=== PATIENT | male | born 1970 | race American Indian/Alaskan Native ===

== ENCOUNTER 2018-10-28 10:56 | Inpatient (IN) ==
[2018-10-28] MEDS ORDERED: IOPAMIDOL 100 ML BOTTLE IV ONE (10:57)
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
[2018-10-28 12:39] LABS: Basophils # (Auto) 0 K/mcL (0.0-0.3); Basophils % (Auto) 0.4 % (0.0-2.0); Eosinophils # (Auto) 0.3 K/mcL (0.0-0.7); Eosinophils % (Auto) 3.6 % (0.0-7.0); Lymphocytes # (Auto) 2.1 K/mcL (1.5-4.8); Lymphocytes % (Auto) 24.3 % (15.5-49.0); Mean Cell Volume 82.7 fL (80.0-100.0); Mean Corpuscular HGB Conc 32.9 g/dL (31.0-36.0); Monocytes # (Auto) 0.8 K/mcL (0.1-0.9); Monocytes % (Auto) 9.7 % (1.0-12.0); Platelet Count 267 K/mcL (140-440); RBC 2.47 M/mcL (4.50-5.90); Red Cell Distribution Width 13.1 % (11.5-14.5)
[2018-10-28 12:57] LABS: ALT/SGPT < 5 U/l (0-40); Albumin 2.9 gm/dL (3.2-5.2); Albumin/Globulin Ratio 0.8 (1.0-2.3); Alkaline Phosphatase 75 U/L (39-117); Blood Urea Nitrogen 24 mg/dl (6-20)
--- NOTE | 2018-10-28 14:38 | Cat Scan Report ---
CLINICAL INFORMATION: Pain COMPARISON: None. TECHNIQUE: 90 cc of Isovue-300 were injected intravenously, and 25 seconds later, 0.625 mm helical slices were obtained from the lung bases to the apices. Following reconstruction, 2.5 mm sagittal, coronal and axial reformations were processed and reviewed at lung, mediastinal and bone windows. 7 mm axial MIPS were also obtained to optimize pulmonary nodule detection. The exam was performed using radiation dose optimization techniques including, but not limited to, automated exposure control, adjustment of the mA and/or kV according to patient size and use of iterative reconstruction technique. FINDINGS: Pulmonary parenchymal windows show minimal scattered scarring and/or atelectasis in both peripheral mid and lower lungs. No jeronimo infiltrates or effusions. Mediastinal windows show a large pericardial effusion slightly higher attenuation than simple fluid - 10 Hounsfield units. The heart is normal size, however. Thoracic aorta and pulmonary arteries are well-opacified and normal in contour and caliber. There are no abnormally enlarged lymph nodes in the mediastinal hilar or axillary region. Esophagus is grossly normal. Thyroid is unremarkable. Bones and soft tissues of the chest wall are normal. IMPRESSION: 1. Large pericardial effusion increasing considerably since a 04/22/[address] 2. No other chest abnormalities. 3. 3.2 cm benign adenoma in the right adrenal gland - stable since [address] Interpreted and Authenticated by: Joaquín Hernandez 10/28/18
--- NOTE | 2018-10-28 15:30 | Cat Scan Report ---
CLINICAL INFORMATION: Right-sided neck swelling COMPARISON: None. TECHNIQUE: 80 cc of Isovue-300 were injected intravenously and 25 seconds later, 2.5 mm helical slices were obtained from the inferior orbit through the supraclavicular region. Following reconstruction, 2.5 mm sagittal and coronal reformations were processed. The exam was reviewed at bone and soft tissue windows . The exam was performed using radiation dose optimization techniques including, but not limited to, automated exposure control, adjustment of the mA and/or kV according to patient size and use of iterative reconstruction technique. FINDINGS: Right IJ Port-A-Cath in satisfactory positioned within the right internal jugular vein: The tip in the SVC right atrial junction. There is no contrast in the right internal jugular vein which may be thrombosed. Moderate edema seen in perijugular soft tissues with extension medially to the prevertebral region. The remainder of the jugular venous and carotid system are unremarkable. There are no abnormally enlarged cervical lymph nodes. The epiglottis, aryepiglottic folds, true and false vocal cords and tongue base are all normal. Thyroid is unremarkable. The submandibular parotid glands are symmetric IMPRESSION: Right-sided Port-A-Cath in satisfactory position. No contrast is seen within the right internal jugular vein which may be thrombosed: suggest ultrasound to be certain. Moderate edema is noted in the perijugular soft tissues and right supraclavicular region with extension medially to involve the prevertebral soft tissues. Interpreted and Authenticated by: Joaquín Hernandez 10/28/18
[2018-10-28] MEDS: HYDROmorphone 2 MG/ML VIAL IV PRN ×2 (15:39→19:00)
--- NOTE | 2018-10-28 16:18 | Ultrasound Report ---
CLINICAL INFORMATION: right sided neck pain COMPARISON: None. FINDINGS: The mid and inferior right internal jugular vein is thrombosed. The right subclavian vein is patent. IMPRESSION: Complete thrombosis of the mid/inferior right internal jugular vein. Interpreted and Authenticated by: Joaquín Hernandez 10/28/18
[2018-10-28] MEDS ORDERED: HEPARIN 5,000 UNIT/ML VIAL IV ONE (16:20)
[2018-10-28] MEDS ORDERED: HEPARIN/D5W 25,000 UNIT in PREMIX 1 BAG IV SCH (16:30)
[2018-10-28] MEDS ORDERED: HEPARIN/D5W 500 ML IV ONE (16:31)
--- NOTE | 2018-10-28 17:43 | Internal Med History&Physical ---
Medical - H&P: HPI Patient information: Note initiated : 10/28/18 at 5:41 pm Service Date, if different from initiated Date: [] Patient: Leslie Lawson 48 y/o M admitted on for Port problems. Chief Complaint: [] History of present illness: Mr. Lawson is a 48 year old M 48-year-old male who presents to the ED with neck pain right side. Patient had a HD catheter placed by Dr. Delarosa the end of September. After the procedure he had neck pain felt is related to the procedure. About a week later he started noticing swelling of that side of the neck. He also gradually developed headache. Symptoms seem to continue to worsen. He went back to [facility] on the and was seen in the ED and received a chest x-ray. Was found to have a UTI and was given a shot of medication at that time. And blood cul tures were taken. He also reported fevers and chills that night. He was sent home after the workup. Was given Rocephin at [facility] He does report a history of shortness of breath which is improved significantly since undergoing dialysis. His complications of diabetes include including retinopathy neuropathy and nephropathy. Urinates a little throughout the day. He presented to [facility] with continued neck pain. Pain is sharp and throbbing and keeps him from rotating to the right because of the pain. Catheter is functioning and he last received dialysis yesterday. 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 Right subclavian vein is patent Case was discussed with Dr. Delarosa from the ED who recommended Eliquis and then discussed with Dr. Centeno recommend starting with IV heparin drip. He has no fever his heart rate is mildly tachycardic at 92. His laboratory work he has no leukocytosis but a hemoglobin of 6.7. Down from 7.5 [facility] 3 days earlier. The ED physician performed stool guaiac testing which was negative. Review of Systems: Pertinent positives as above. Denies chills/nausea/vomiting/chest or abdominal pain/cough/dyspnea/diarrhea. Remaining 10 point review of systems reviewed negative. Medical - H&P: PMH Medical history: Medical History Morbid obesity (Chronic) Multiple lipomas (Chronic) Hypertension, essential (Chronic) Appendicitis (Chronic) Joint pain (Chronic) Diabetes (Chronic) Daytime sleepiness (Chronic) Muscle pain (Chronic) Arthritis (Chronic) Thoracic back pain (Acute) Past Surgical History H/O foot surgery (Chronic) Hx of appendectomy (Chronic) S/P excision of lipoma (Chronic) Family history: Mother had a CVA Father diabetes Social history: Patient denies tobacco and alcohol lives with his family Medical - H&P: Meds Home Medications Medication Instructions Recorded Confirmed Type Amitriptyline HCl 25 - 75 mg PO HS 10/28/18 10/28/18 History Bumetanide 2 mg PO DAILY 10/28/18 10/28/18 History Carvedilol [Coreg] 12.5 mg PO BID 10/28/18 10/28/18 History Ergocalciferol (Vitamin D2) 2,500 unit PO DAILY 10/28/18 History [Ergocal] Insulin Lispro [HumaLOG] 0 unit SQ ACHS 10/28/18 10/28/18 History Irbesartan [Avapro] 300 mg PO DAILY 10/28/18 10/28/18 History Magnesium Oxide [Mag-Oxide 200 mg PO DAILY 10/28/18 History Magnesium] Rosuvastatin [Crestor] 10 mg PO HS 10/28/18 10/28/18 History Testosterone Cypionate 100 mg IM WEEKLY 10/28/18 10/28/18 History [Depo-Testosterone] amLODIPine BESYLATE [Amlodipine 5 mg PO DAILY 10/28/18 10/28/18 History Besylate] Allergies Allergy/AdvReac Type Severity Reaction Status Date / Time doxycycline Allergy Severe Unknown Verified 10/28/18 11:00 morphine Allergy Severe Unknown Verified 10/28/18 11:00 Penicillins Allergy Severe Unknown Verified 10/28/18 11:00 Medical - H&P: Exam - Constitutional Vitals: Temp Pulse Resp BP Pulse Ox 99.0 F 91 H 21 172/88 94 10/28/18 10:56 10/28/18 17:15 10/28/18 17:15 10/28/18 17:16 10/28/18 17:15 Exam: General: Alert, Awake, No acute Distress, obese Eyes/N/T: EOMI, PEERL, Head/Neck: Decreased range of motion right rotation secondary to pain, difficult to appreciate swelling in the right side given his girth from adipose tissue CV: Mildly tachycardic, No murmurs, normal s1/s2 Pulm: Clear b/l, no wheezing/rhonchi/rales Abd: soft, nontender, +BS x4 Ext: no clubbing/cyanosis/edema Neuro: Alert, no focal deficits, moves all extremities, CN 2-12 grossly intact, symmetrical strength b/l upper/lower, sensations intact b/l upper/lower but does have decreased sensation in the leg from neuropathy Skin: warm/dry Medical - H&P: Reslt - Labs CBC & Chem 7: 10/28/18 12:07 10/28/18 12:07 Labs: Short CBC 10/28/18 Range/Units 12:07 WBC 8.6 (4.5-11.0) K/mcL Hgb 6.7 L* (13.5-16.5) g/dL Hct 20.4 L* (41.0-55.0) % Plt Count 267 (140-440) K/mcL BMP 10/28/18 12:07 Sodium 137 Potassium 4.0 Chloride 97 Carbon Dioxide 30 BUN 24 H Creatinine 4.6 H Glucose 173 H Calcium 8.1 L Liver Function 10/28/18 Range/Units 12:07 Total Bilirubin 0.2 (0.0-1.0) mg/dL AST 10 (0-37) U/l ALT < 5 (0-40) U/l Alkaline Phosphatase 75 (39-117) U/L Albumin 2.9 L (3.2-5.2) gm/dL - Impressions Ultrasound with a right internal jugular vein thrombus CT soft tissue shows moderate edema in the perijugular soft tissues and right subclavian region CT chest shows per discussion with radiologist moderate effusion chronic in nature, no acute abnormalities Medical - H&P: A/P - Narrative A/P Narrative: A: *Right IJ Vein thrombosis s/p placement of right HD cath almost 4 weeks ago @[facility]: -causing swelling/discomfort of right side of neck but no airway compromise *?bacteremia: clarify as BC from [facility] show no growth *recent UTI: *ESRD (MWF): follows with Centeno *DM with retinopathy/neuropathy/nephropathy: *HTN: On amlodipine/carvedilol/Irbesartain *Anemia, acute on chronic: stool guaiac negative in the ED -No obvious source of bleeding, CT a/p no retroperitoneal bleeding noted * P: -heparin gtt -Abx until BC confirmed -Centeno following -echo to evaluate pericardial effusion -transfuse 1 PRBC, monitor H&H - -basal insulin and SSI - -ppx: on heparin gtt
--- NOTE | 2018-10-28 17:44 | Cat Scan Report ---
CLINICAL INFORMATION: Abdominal pain and occult bleeding COMPARISON: Abdomen and pelvic CT 04/22/2013 TECHNIQUE: 0.625 mm helical slices were obtained from the mid heart through the subtrochanteric regions. Following reconstruction, 2.5 mm sagittal, coronal and axial reformatted images were processed and reviewed at bone and soft tissue windows.The exam was performed using radiation dose optimization techniques including, but not limited to, automated exposure control, adjustment of the mA and/or kV according to patient size and use of iterative reconstruction technique. FINDINGS: Lung bases show no abnormality - no effusion. Moderate pericardial effusion is new from the previous study.The pericardial effusion is higher attenuation suggesting proteinaceous content such as hemorrhage or infection. Small bilateral pleural effusions have also developed. Image through the abdomen show the noncontrasted gallbladder and bile ducts, liver, both kidneys, adrenal glands, spleen, pancreas and aorta to be normal in size, configuration and attenuation without focal lesion. No free air, free fluid or adenopathy. The stomach, small and large bowel are normal. Appendectomy changes acknowledged. Pelvic images show prostate, seminal vesicles and urinary bladder are normal. Bone windows show no osseous abnormalities. IMPRESSION: No abnormality within the abdomen or pelvis Moderate/large pericardial effusion with high attenuation fluid suggesting hemorrhage or infection. Consider: Pericardiocentesis Small bilateral pleural effusions Interpreted and Authenticated by: Joaquín Hernandez 10/28/18
[2018-10-28] MEDS ORDERED: ACETAMINOPHEN 325 MG TABLET PO ONE (20:06)
[2018-10-28] MEDS ORDERED: HYDROmorphone 2 MG/ML VIAL IV PRN (20:31)
[2018-10-28] MEDS ORDERED: ceFAZolin 2 GM in DEXTROSE 5% IN WATER 50 ML IV SCH (20:31)
[2018-10-28] MEDS ORDERED: IPRATROPIUM/ALBUTEROL 3 ML AMPUL.NEB NEB PRN (20:31)
[2018-10-28] MEDS ORDERED: 0.9 % SODIUM CHLORIDE 250 ML IV SCH (20:31)
[2018-10-28] MEDS ORDERED: LEVOFLOXACIN 750 MG/150 ML BAG IV ONE ×2 (21:51→22:35)
[2018-10-28 21:56] LABS: Appearance,Urine CLEAR; Bacteria,Urine 0 /hpf (0); Bilirubin,Urine NEG (NEG); Color,Urine YELLOW; Glucose,Urine (UA) 150 mg/dL (NEG); Leukocyte Esterase,Urine NEG /uL (NEG); Mucus,Urine FEW /hpf (0); Protein,Urine >=500 mg/dL (NEG); Urine Blood 0.03 mg/dL (<0.03); Urine Hyaline Cast 10 /lpf (0-2); Urine RBC 5 /hpf (0-1); Urine Squamous Epithelial Cell < 1 /hpf (0-4); Urine WBC 6 /hpf (0-4); Urobilinogen,Urine NEG (NEG)
[2018-10-28] MEDS ORDERED: CARVEDILOL 6.25 MG TABLET ONE (22:35)
[2018-10-28] MEDS ORDERED: ceFAZolin 1 GM VIAL ONE (22:35)
[2018-10-28] MEDS: AMITRIPTYLINE 25 MG TABLET PO SCH (22:40)
[2018-10-28] MEDS: 0.9 % SODIUM CHLORIDE 10 ML SYRINGE IV SCH (22:41)
[2018-10-28] MEDS: CARVEDILOL 12.5 MG TABLET PO SCH (22:42)
[2018-10-28] MEDS: DOCUSATE SODIUM 100 MG CAPSULE PO SCH (22:43)
[2018-10-28] MEDS: HEPARIN/D5W 25,000 UNIT in PREMIX 1 BAG IV SCH (22:46)
[2018-10-29] MEDS: ACETAMINOPHEN 325 MG TABLET PO PRN ×2 (00:52→19:21)
[2018-10-29] MEDS ORDERED: VANCOMYCIN 1,000 MG in 0.9 % SODIUM CHLORIDE 250 ML IV ONE (01:02)
[2018-10-29] MEDS: 0.9 % SODIUM CHLORIDE 10 ML SYRINGE IV SCH ×3 (05:31→20:53)
[2018-10-29] MEDS ORDERED: ceFAZolin 1 GM VIAL IV SCH ×2 (06:00→07:23)
[2018-10-29 06:03] LABS: Basophils # (Auto) 0 K/mcL (0.0-0.3); Basophils % (Auto) 0.5 % (0.0-2.0); Eosinophils # (Auto) 0.4 K/mcL (0.0-0.7); Eosinophils % (Auto) 5.6 % (0.0-7.0); Granulocytes % (Auto) 62.3 % (38.0-78.0); Lymphocytes # (Auto) 1.8 K/mcL (1.5-4.8); Lymphocytes % (Auto) 23.1 % (15.5-49.0); Mean Corpuscular HGB Conc 33.6 g/dL (31.0-36.0); Monocytes # (Auto) 0.7 K/mcL (0.1-0.9); Monocytes % (Auto) 8.5 % (1.0-12.0); Platelet Count 261 K/mcL (140-440); RBC 2.59 M/mcL (4.50-5.90)
[2018-10-29 06:21] LABS: ALT/SGPT < 5 U/l (0-40); Albumin 2.6 gm/dL (3.2-5.2); Albumin/Globulin Ratio 0.7 (1.0-2.3); Alkaline Phosphatase 74 U/L (39-117); Bilirubin,Direct < 0.2 mg/dL (0.0-0.3); Blood Urea Nitrogen 28 mg/dl (6-20); Gamma Glutamyl Transpeptidase 16 U/L (8-61); Uric Acid 4.8 mg/dL (2.5-8.0)
[2018-10-29] MEDS ORDERED: VANCOMYCIN PER PHARMACY IV SCH (07:17)
--- NOTE | 2018-10-29 07:24 | Internal Med Progress Note ---
Medical - PN: Subj Patient information: Note initiated : 10/29/18 at 7:15 am Service Date, if different from initiated Date: [] Patient: Leslie Lawson 48 y/o M admitted on 10/28/18 for Port problems. Chief Complaint: [] Interval history: 48-year-old male who presents to the ED with neck pain right side. Patient had a HD catheter placed by Dr. Delarosa the end of September. After the procedure he had neck pain felt is related to the procedure. About a week later he started noticing swelling of that side of the neck. He also gradually developed headache. Symptoms seem to continue to worsen. He went back to [facility] on the and was seen in the ED and received a chest x-ray. Was found to have a UTI and was given a shot of medication at that time. And blood cultures were taken. He also reported fevers and chills that night. He was sent home after the workup. Was given Rocephin at [facility] He does report a history of shortness of breath which is improved significantly since undergoing dialysis. His complications of diabetes include including retinopathy neuropathy and nephropathy. Urinates a little throughout the day. He presented to [facility] with continued neck pain. Pain is sharp and throbbing and keeps him from rotating to the right because of the pain. Catheter is functioning and he last received dialysis yesterday. 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 Right subclavian vein is patent Case was discussed with Dr. Delarosa from the ED who recommended Eliquis and then dis cussed with Dr. Centeno requested admitting and starting on IV heparin drip. He has no fever his heart rate is mildly tachycardic at 92. His laboratory work he has no leukocytosis but a hemoglobin of 6.7. Down from 7.5 [facility] 3 days earlier. The ED physician performed stool guaiac testing which was negative. UPDATE: Concerning the pericardial effusion and the CT abdomen pelvis which visualized heart. Report revealing effusion concerning for hemorrhage or infection. And given unknown source of his anemia (at lowest level) even though he has ESRD, no other source of bleeding, thus the concern that he is bleeding into the pericardial cavity. Is not in cardiac tamponade. Patient will need to be transferred to appropriate higher care facility. FURTHER UPDATE: I discussed the case with the instructional systems specialist over [facility] regarding the CT reading involving the pericardial fluid. And after reviewing the history and labs of the patient with me he had no immediate concerns and does not suspected hemorrhagic fluid around the heart, and patient certainly is not in cardiac Tamponade at this time nor are there any signs concerning for trending towards. He recommended keeping here with close monitoring and if anything changed to call him back. 10/29 Patient supple. Did have a temperature of 100.7 overnight, temperature normal this morning. No overnight events. Patient feels much better. His pain and swelling on the right side of his neck is improving and his headache is much improved. No chest pain coughing or shortness of breath. Review of Systems: denies fever/chills/nausea/vomiting/chest or abdominal pain/cough/dyspnea/diarrhea. Otherwise see above. - Constitutional Vitals: Vital Signs Temp Pulse Resp BP Pulse Ox 98.8 F 79 15 148/89 100 10/29/18 04:01 10/29/18 06:02 10/29/18 05:11 10/29/18 06:01 10/29/18 06:02 Period Temp Pulse Resp BP Sys/Lee Pulse Ox Last 24 Hr 98.8 F-100.7 F 77-96 6-25 120-188/68-108 87-100 Intake and Output 10/28/18 10/29/18 10/29/18 21:59 05:59 13:59 Intake Total 501 994 Output Total 125 150 Balance 376 844 Weight 126.462 kg Intake & Output: Intake & Output 10/28/18 10/29/18 10/29/18 21:59 05:59 13:59 Intake Total 501 994 Output Total 125 150 Balance 376 844 Weight 126.462 kg Intake: IV 141 134 Heparin/D5w 25,000 Unit In 141 134 Premix 1 Bag @ 14 UNIT/KG/HR 35 .18 mls/hr IV .[id number] [facility] Rx#: [id number] Oral 360 540 Blood Product 320 Output: Void Amount 125 150 Other: Meal sandwich Percent of Meal Consumed 100% Feeding Ability Independent Urine Appearance Clear Clear Urine Color Bright Yellow Dark Yellow Urine Odor Normal Normal Stool Size Moderate Stool Color Brown Stool Consistency Soft Formed # Voids 1 # Bowel Movements 1 Exam: General: Alert, Awake, No acute Distress, obese Eyes/N/T: EOMI, Head/Neck: improved ROM, difficult to appreciate swelling in the right side given his girth from adipose tissue CV: RRR, No murmurs, Pulm: Clear b/l, no wheezing/rhonchi/rales Abd: soft, nontender, +BS x4 Ext: no clubbing/cyanosis/edema Neuro: Alert, no focal deficits, moves all extremities, Skin: warm/dry Medical - PN: Obj Da - Labs CBC & Chem 7: 10/29/18 05:00 10/29/18 05:00 Labs: Abnormal Lab Results 10/29/18 10/29/18 10/29/18 05:00 05:00 00:20 RBC 2.59 L Hgb 7.3 L Hct 21.7 L POC Hct PT INR APTT 67 H POC BUN BUN 28 H Creatinine 5.2 H* POC Creatinine Glucose 192 H POC Glucose Calcium 7.7 L POC WB Ioniz Calcium Lactate Dehydrogenase 262 H Albumin 2.6 L Albumin/Globulin Ratio 0.7 L Urine Protein Urine Glucose (UA) Urine Occult Blood Urine RBC Urine WBC Hyaline Casts 10/28/18 10/28/18 10/28/18 20:45 18:13 16:50 RBC Hgb Hct POC Hct PT 16.4 H 17.1 H INR 1.3 H 1.4 H APTT 144 H* POC BUN BUN Creatinine POC Creatinine Glucose POC Glucose Calcium POC WB Ioniz Calcium Lactate Dehydrogenase Albumin Albumin/Globulin Ratio Urine Protein >=500 A Urine Glucose (UA) 150 A Urine Occult Blood 0.03 A Urine RBC 5 H Urine WBC 6 H Hyaline Casts 10 H 10/28/18 10/28/18 12:07 12:07 RBC 2.47 L Hgb 6.7 L* Hct 20.4 L* POC Hct 19.0 L* PT INR APTT POC BUN 23 H BUN 24 H Creatinine 4.6 H POC Creatinine 5.1 H Glucose 173 H POC Glucose 174 H Calcium 8.1 L POC WB Ioniz Calcium 1.06 L Lactate Dehydrogenase Albumin 2.9 L Albumin/Globulin Ratio 0.8 L Urine Protein Urine Glucose (UA) Urine Occult Blood Urine RBC Urine WBC Hyaline Casts Meds: Medications Acetaminophen (Tylenol) 650 mg PO Q4-6HP PRN PRN Reason: PAIN/FEVER > 101 Last Admin: 10/29/18 00:52 Dose: 650 mg Documented by: Albuterol/Ipratropium (Duoneb) 3 ml NEB Q4HRT PRN PRN Reason: Bronchospasm Amitriptyline HCl (Elavil) 25 - 75 mg PO HS [facility] Last Admin: 10/28/18 22:40 Dose: 75 mg Documented by: Amlodipine Besylate (Norvasc) 5 mg PO DAILY [facility] Bumetanide (Bumex) 2 mg PO DAILY [facility]g) [facility] Last Admin: 10/28/18 22:42 Dose: Not Given Documented by: Cefazolin Sodium (Ancef) 1 gm IV Q8H [facility] Last Admin: 10/29/18 05:31 Dose: 1 gm Documented by: Diagnostic Test (Pha) (Accu-Chek) 1 each FS ACHS [facility]; Protocol Last Admin: 10/28/18 22:42 Dose: 1 each Documented by: Docusate Sodium (Colace) 100 mg PO BID [facility] Last Admin: 10/28/18 22:43 Dose: Not Given Documented by: Hydromorphone HCl (Dilaudid) 0.5 mg IV Q2HP PRN PRN Reason: PAIN LEVEL > 6 Last Admin: 10/29/18 01:35 Dose: 0.5 mg Documented by: Heparin Sodium/Dextrose 25,000 (unit/ Premix) 500 mls @ 35.18 mls/hr IV .[id number] [facility]; Protocol Last Titration: 10/29/18 02:34 Dose: 16 unit/kg/hr, 40.21 mls/hr Documented by: Sodium Chloride (Sodium Chloride 0.9%) 250 mls @ 20 mls/hr IV .[id number] [facility] Stop: 10/29/18 09:00 Last Admin: 10/29/18 01:08 Dose: 20 mls/hr Documented by: Irbesartan (Avapro) 300 mg PO DAILY [facility] Mupirocin (Bactroban Oint 2%) 1 dose NARES BID [facility] Sodium Chloride (Saline Flush) 10 ml IV Q8 [facility] Last Admin: 10/29/18 05:31 Dose: 10 ml Documented by: Medical - PN: A/P - Time Spent With Patient Total time spent is greater than 50% in coordination of care (as documented) at patient's floor/unit and/or counseling patient: - Narrative A/P Narrative: A: *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 *ESRD (MWF): follows with [facility] *DM with retinopathy/neuropathy/nephropathy: *HTN: On amlodipine/carvedilol/Irbesartain *Anemia, acute on chronic: stool guaiac negative in the ED -No obvious source of bleeding, CT a/p no retroperitoneal bleeding noted -s/p 1PRB (10/28) *Pericardial effusion, moderate: No findings concerning for cardiac tamponade. Small effusion noted on CT from 2012. -discussed with [facility] Telephone Ad Taker regarding CT report (Dr. Pompa), no concern for transferring patient at this time P: -heparin gtt -vanc/cefepime, pending BC -pending cx from HD cath -[facility] following, further recs pending -monitor H&H - -SSI -ppx: on heparin gtt Medical - PN: Qual - VTE Deep Vein Thrombosis/Pulmonary Embolism Present on Admission: No
[2018-10-29] MEDS: CARVEDILOL 12.5 MG TABLET PO SCH ×2 (07:42→17:05)
[2018-10-29] MEDS ORDERED: CARVEDILOL 12.5 MG TABLET PO SCH (08:00)
[2018-10-29] MEDS: HEPARIN/D5W 25,000 UNIT in PREMIX 1 BAG IV SCH (12:31)
[2018-10-29] MEDS: MUPIROCIN OINT 2% 22GM NARES SCH (15:41)
[2018-10-29] MEDS: amLODIPine 5 MG TABLET PO SCH (15:42)
[2018-10-29] MEDS: LOSARTAN 50 MG TABLET PO SCH (15:42)
[2018-10-29] MEDS: BUMETANIDE 1 MG TABLET PO SCH (15:43)
[2018-10-29] MEDS: DOCUSATE SODIUM 100 MG CAPSULE PO SCH ×2 (15:43→20:53)
[2018-10-29] MEDS: CEFEPIME 1 GM VIAL IV SCH (15:44)
[2018-10-29 16:12] LABS: Vancomycin,Random 8.6 ug/mL
[2018-10-29] MEDS: INSULIN LISPRO 1 UNIT/0.01 ML UNIT SQ SCH ×3 (16:53→20:53)
[2018-10-29] MEDS ORDERED: VANCOMYCIN 1,250 MG in 0.9 % SODIUM CHLORIDE 500 ML IV ONE (17:00)
[2018-10-30] MEDS: HEPARIN/D5W 25,000 UNIT in PREMIX 1 BAG IV SCH (00:41)
[2018-10-30] MEDS: AMITRIPTYLINE 25 MG TABLET PO SCH (00:51)
[2018-10-30] MEDS: ACETAMINOPHEN 325 MG TABLET PO PRN ×2 (00:52→09:50)
[2018-10-30] MEDS: MUPIROCIN OINT 2% 22GM NARES SCH ×2 (00:53→08:59)
[2018-10-30 04:43] LABS: Basophils # (Auto) 0 K/mcL (0.0-0.3); Basophils % (Auto) 0.4 % (0.0-2.0); Eosinophils # (Auto) 0.6 K/mcL (0.0-0.7); Eosinophils % (Auto) 6.1 % (0.0-7.0); Granulocytes % (Auto) 61.6 % (38.0-78.0); Lymphocytes # (Auto) 2.4 K/mcL (1.5-4.8); Mean Cell Volume 84.7 fL (80.0-100.0); Mean Corpuscular HGB Conc 33.2 g/dL (31.0-36.0); Monocytes # (Auto) 0.8 K/mcL (0.1-0.9); Monocytes % (Auto) 7.9 % (1.0-12.0); Platelet Count 307 K/mcL (140-440); RBC 2.77 M/mcL (4.50-5.90); Red Cell Distribution Width 13.6 % (11.5-14.5)
[2018-10-30 05:03] LABS: ALT/SGPT < 5 U/l (0-40); Albumin 2.8 gm/dL (3.2-5.2); Albumin/Globulin Ratio 0.7 (1.0-2.3); Alkaline Phosphatase 72 U/L (39-117); Bilirubin,Direct < 0.2 mg/dL (0.0-0.3); Blood Urea Nitrogen 19 mg/dl (6-20); Gamma Glutamyl Transpeptidase 18 U/L (8-61); Uric Acid 3.4 mg/dL (2.5-8.0)
[2018-10-30] MEDS: 0.9 % SODIUM CHLORIDE 10 ML SYRINGE IV SCH (05:25)
[2018-10-30] MEDS: INSULIN LISPRO 1 UNIT/0.01 ML UNIT SQ SCH ×2 (07:49→12:00)
[2018-10-30] MEDS: CARVEDILOL 12.5 MG TABLET PO SCH (07:49)
--- NOTE | 2018-10-30 08:22 | Nephrology Progress Note ---
Subjective Patient information: Note initiated : 10/30/18 at 8:19 am Service Date, if different from initiated Date: [] Patient: Leslie Lawson 48 y/o M admitted on 10/28/18 for Port problems. Chief Complaint: [Patient was seen on dialysis on 10/29/2018. He was feeling a lot better. His right neck jugular pain was better. He has not had any fevers. Objective - Vital Signs Vital signs: Vital Signs Temp Pulse Resp BP Pulse Ox 10/30/18 07:01 98.7 F 79 142/89 100 10/30/18 06:01 79 131/89 100 10/30/18 05:02 80 100 10/30/18 05:01 80 16 126/82 100 10/30/18 04:01 80 121/77 100 10/30/18 04:00 80 99 10/30/18 03:01 98.6 F 84 14 150/88 96 10/30/18 01:53 85 16 141/84 99 10/30/18 01:52 16 99 10/30/18 01:01 89 20 146/101 99 10/30/18 00:01 99.3 F H 87 18 152/92 99 10/29/18 23:01 88 15 143/88 100 10/29/18 22:01 87 16 142/86 100 10/29/18 21:01 89 149/89 100 10/29/18 21:00 89 100 10/29/18 20:01 87 16 147/92 97 10/29/18 20:00 99.0 F 87 15 100 10/29/18 19:01 13 147/84 10/29/18 18:46 144/98 10/29/18 18:31 162/94 10/29/18 18:16 99 H 14 168/102 97 10/29/18 18:01 102 H 176/105 100 10/29/18 18:00 101 H 100 10/29/18 17:02 91 H 98 10/29/18 17:01 92 H 160/97 100 10/29/18 17:00 92 H 99 10/29/18 16:46 95 H 166/102 100 10/29/18 16:31 89 153/97 100 10/29/18 16:16 89 147/94 100 10/29/18 16:02 89 100 10/29/18 16:01 89 133/84 100 10/29/18 16:00 89 100 10/29/18 15:32 133/89 10/29/18 15:16 86 142/85 100 10/29/18 15:01 87 131/89 94 10/29/18 15:00 91 H 92 10/29/18 14:46 87 118/60 100 10/29/18 14:45 86 118/60 10/29/18 14:37 87 142/87 100 10/29/18 14:31 87 127/89 100 10/29/18 14:30 99.5 F H 87 127/89 10/29/18 14:16 83 139/91 100 10/29/18 14:15 88 139/91 10/29/18 14:01 88 121/88 100 10/29/18 14:00 98.7 F 90 24 H 133/84 100 10/29/18 13:45 84 125/87 10/29/18 13:30 84 144/94 10/29/18 13:15 85 134/94 10/29/18 13:02 87 94 10/29/18 13:01 99.4 F H 87 162/102 98 10/29/18 13:00 86 162/102 10/29/18 12:46 86 164/99 93 10/29/18 12:45 88 164/99 10/29/18 12:31 79 146/92 98 10/29/18 12:30 79 146/92 10/29/18 12:16 80 156/88 100 10/29/18 12:15 81 156/88 10/29/18 12:07 80 100 10/29/18 12:01 96.6 F L 79 140/92 100 10/29/18 12:00 81 140/92 10/29/18 11:45 80 135/93 10/29/18 11:30 78 148/86 10/29/18 11:16 79 132/87 97 10/29/18 11:15 79 132/87 10/29/18 11:06 78 97 10/29/18 11:01 75 132/87 98 10/29/18 11:00 78 132/87 10/29/18 10:45 76 146/92 10/29/18 10:30 75 145/90 10/29/18 10:15 76 147/88 04/19/19 10:01 74 141/95 100 10/29/18 10:00 96.6 F L 75 141/95 10/29/18 09:37 98.7 F 74 136/90 100 Intake and Output 10/29/18 10/30/18 10/30/18 21:59 05:59 13:59 Intake Total 507 263 0 Output Total 5040 0 0 Balance -4533 263 0 Intake: IV 237 263 Heparin/D5w 25,000 Unit In 237 263 Premix 1 Bag @ 14 UNIT/KG/HR 35 .18 mls/hr IV .[id number] [facility] Rx#: [id number] Oral 270 0 0 Output: Void Amount 0 0 0 Hemodialysis UF 5040 Other: Meal Nourishment/Supplement Nourishment/Supplement Percent of Meal Consumed 100% 100% Feeding Ability Independent Independent Nourishment/Supplement name strawberries egg salad sandwich Stool Color Brown Stool Consistency Soft # Voids 0 Weight 271 lb 6 oz Intake & Output: Intake & Output 10/29/18 10/30/18 10/30/18 21:59 05:59 13:59 Intake Total 507 263 0 Output Total 5040 0 0 Balance -4533 263 0 Weight 271 lb 6 oz Intake: IV 237 263 Heparin/D5w 25,000 Unit In 237 263 Premix 1 Bag @ 14 UNIT/KG/HR 35 .18 mls/hr IV .[id number] [facility] Rx#: [id number] Oral 270 0 0 Output: Void Amount 0 0 0 Hemodialysis UF 5040 Other: Meal Nourishment/Supplement Nourishment/Supplement Percent of Meal Consumed 100% 100% Feeding Ability Independent Independent Nourishment/Supplement name strawberries egg salad sandwich Stool Color Brown Stool Consistency Soft # Voids 0 - General Appearance General appearance: well-developed, well-nourished EENT: ATNC, PERRL Neck: no JVD Respiratory: no kyphosis Cardiology: no murmurs Gastrointestinal: normoactive bowel sounds Integumentary: no rash Neurologic: no focal deficit, no asterixis Musculoskeletal: no deformities - Lab 10/30/18 03:45 10/30/18 03:45 Most recent lab results Calcium 7.9 mg/dl (8.6-10.4) L 10/30/18 03:45 Phosphorus 3.7 mg/dL (2.7-4.5) 10/30/18 03:45 Magnesium 1.9 mg/dL (1.6-2.5) 10/30/18 03:45 Assessment and Plan (1) End stage renal disease Status: Acute - Narrative A/P Narrative: Patient had dialysis 10/30 and tolerated well. Had 5000ml of fluid removed. IJ thrombosis. Need terminal superintendent anticoagulation per hospitalist. Bacteremia from 10/25. Sensi still pending. Will treat with antibiotics at dialysis for 1 more week as he has a clot in the IJ. Pericardial effusion. I do not believe this is dialysis related. Spoke with Dr. Uribe.
[2018-10-30] MEDS: LOSARTAN 50 MG TABLET PO SCH (08:56)
[2018-10-30] MEDS: amLODIPine 5 MG TABLET PO SCH (08:57)
[2018-10-30] MEDS: DOCUSATE SODIUM 100 MG CAPSULE PO SCH (08:57)
[2018-10-30] MEDS ORDERED: APIXABAN 5 MG TABLET PO SCH (09:00)
[2018-10-30] MEDS ORDERED: MAGNESIUM OXIDE 400 MG TABLET PO SCH (09:00)
[2018-10-30] MEDS: BUMETANIDE 1 MG TABLET PO SCH (09:05)
[2018-10-30] MEDS: CEFEPIME 1 GM VIAL IV SCH (09:05)
--- NOTE | 2018-10-30 09:32 | Discharge Summary ---
Medical - DS: Prov Patient information: Note initiated : 10/30/18 at 9:29 am Service Date, if different from initiated Date: [] Patient: Leslie Lawson 48 y/o M admitted on 10/28/18 for Port problems. Chief Complaint: [] Date of admission: 10/28/18 20:28 Discharge date: 10/30/18 Primary care physician: Eladia Schwartz Consults: 10/28/18 Consult to Physician [CONS] Stat Comment: Consulting Provider: Beto Lizarraga Reason For Exam: Physician to Consult 10/28/18 20:31 Consult to Physician [CONS] Routine Comment: Consulting Provider: Jude Centeno Reason For Exam: Physician to Consult Discharging clinician: Melissa Uribe Medical - DS: Meds - Discharge Medications Active and Home Medications: Home Medications Acetaminophen [Tylenol] 650 mg PO Q4-6HP PRN 10/28/18 [History Confirmed 10/28/18 Last Taken 10/28/18 08:00] Amitriptyline HCl 25 - 75 mg PO HS 10/28/18 [History Confirmed 10/28/18 Last Taken 10/27/18 20:00] Bumetanide 2 mg PO DAILY 10/28/18 [History Confirmed 10/28/18 Last Taken 10/28/18 08:00] Carvedilol [Coreg] 12.5 mg PO BID 10/28/18 [History Confirmed 10/28/18 Last Taken 10/28/18 08:00] Ergocalciferol (Vitamin D2) [Ergocal] 50,000 unit PO WEEKLY 10/28/18 [History Confirmed 10/28/18 Last Taken Unknown] Insulin Lispro [HumaLOG] 0 unit SQ ACHS 10/28/18 [History Confirmed 10/28/18 Last Taken Unknown] Irbesartan [Avapro] 300 mg PO DAILY 10/28/18 [History Confirmed 10/28/18 Last Taken 10/28/18 08:00] Magnesium Oxide [Mag-Oxide Magnesium] 420 mg PO DAILY 10/28/18 [History Confirmed 10/28/18 Last Taken 10/28/18 09:00] Rosuvastatin [Crestor] 10 mg PO HS 10/28/18 [History Confirmed 10/28/18 Last Taken 10/27/18 21:00] Testosterone Cypionate [Depo-Testosterone] 100 mg IM WEEKLY 10/28/18 [History Confirmed 10/28/18 Last Taken 10/28/18 09:00] amLODIPine BESYLATE [Amlodipine Besylate] 5 mg PO DAILY 10/28/18 [History Confirmed 10/28/18 Last Taken 10/28/18 08:00] Medical - DS: Hosp Hospital course: 48-year-old male who presented to the ED with neck pain right side. Patient had a HD catheter placed by Dr. Shipman the end of September. After the procedure he had neck pain felt is related to the procedure. About a week later he started noticing swelling of that side of the neck. He also gradually developed headache. Symptoms seem to continue to worsen. He went back to [facility] on the and was seen in the ED and received a chest x-ray. Was found to have a UTI and was given a shot of medication at that time. And blood cultures were taken. He also reported fevers and chills that night. He was sent home after the workup. Was given Rocephin at [facility] He does report a history of shortness of breath which is improved significantly since undergoing dialysis. His complications of diabetes include including retinopathy neuropathy and nephropathy. Urinates a little throughout the day. He presented to [facility] with continued neck pain. Pain is sharp and throbbing and keeps him from rotating to the right because of the pain. Catheter is functioning and he last received dialysis yesterday. 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 Right subclavian vein is patent Case was discussed with Dr. Shipman from the ED who recommended Eliquis and then discussed with Dr. Centeno requested admitting and starting on IV heparin drip. He has no fever his heart rate is mildly tachycardic at 92. His laboratory work he has no leukocytosis but a hemoglobin of 6.7. Down from 7.5 [facility] 3 days earlier. The ED physician performed stool guaiac testing which was negative. UPDATE: Concerning the pericardial effusion and the CT abdomen pelvis which visualized heart. Report revealing effusion concerning for hemorrhage or infection. And given unknown source of his anemia (at lowest level) even though he has ESRD, no other source of bleeding, thus the concern that he is bleeding into the pericardial cavity. Is not in cardiac tamponade. Patient will need to be transferred to appropriate higher care facility. FURTHER UPDATE: I discussed the case with the hop weigher over [facility] regarding the CT reading involving the pericardial fluid. And after reviewing the history and labs of the patient with me he had no immediate concerns and does not suspected hemorrhagic fluid around the heart, and patient certainly is not in cardiac Tamponade at this time nor are there any signs concerning for trending towards. He recommended keeping here with close monitoring and if anything changed to call him back. 10/29 Patient supple. Did have a temperature of 100.7 overnight, temperature normal this morning. No overnight events. Patient feels much better. His pain and swelling on the right side of his neck is improving and his headache is much improved. No chest pain coughing or shortness of breath. 10/30 patient seen examined, no acute overnight issues, tolerating po well, pain resonably well controlled. His blood cultures are negative so far, I reviewed cultures on 10/25/2018, and found 2 sets were negative. I do not have the results of the positive culture. On talking with Dr Centeno, he noted he would be managing the positive culture at his dialysis unit. Pt will get his IV antibiotics today, the patient need anticoagulation for symptomatic catheter related thrombosis. will be switched to eliquis as per Dr shipman Recommendations. Patient has been explained the need for anticoagulation. Regarding his pericardial effusion, this does not seem to be new, echo does not show any tamponade features, patient has recently been started on HD, but Dr Centeno does not beleive this to be uremic peridcardial effusion. Advised to follow up with cardiology next week. 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 *?HD cath infection: BC from [facility] show no growth but no cx's via catheter -mild fever last night. -Neg cultures reviewed from 10/25, as well as in this hospital, I was unable to find the positive culture, Dr Centeno will be treating the infection at his HD center *ESRD (MWF): follows with Jacobo, next session planned on thursday. *Pericardial effusion, moderate: No findings concerning for cardiac tamponade on echo and no vegetations -Small effusion noted on CT from 2013. -discussed with [facility] On Air Director regarding CT report (Dr. Pompa), no concern for transferring patient at this time, outpatient follow up with On Air Director. Anemia -s/p 1 unit prbc xfusion, no e/o acute blled, h/h remained stable on Hep GGT. Patient is stable for discharge Will follow up with Dr Centeno for his routine dialysis, Cardiology in 1 week for pericardial effusion, PCP in 1 week. Discharge diagnosis: IJ thrombosis. - Time Spent with Patient Total time spent providing and/or coordinating discharge services: Greater than 30 minutes Medical - DS: Exam - Constitutional Vitals: Vital Signs Temp Pulse Pulse Resp BP Pulse Ox 10/30/18 08:01 97.2 F 80 18 147/96 100 10/30/18 08:00 82 99 10/30/18 07:02 79 100 10/30/18 07:01 98.7 F 79 142/89 100 10/30/18 06:01 79 131/89 100 10/30/18 05:02 80 100 10/30/18 05:01 80 16 126/82 100 10/30/18 04:01 80 121/77 100 10/30/18 04:00 80 99 10/30/18 03:01 98.6 F 84 14 150/88 96 10/30/18 01:53 85 16 141/84 99 10/30/18 01:52 16 99 10/30/18 01:01 89 20 146/101 99 10/30/18 00:01 99.3 F H 87 18 152/92 99 10/29/18 23:01 88 15 143/88 100 10/29/18 22:01 87 16 142/86 100 10/29/18 21:01 89 149/89 100 10/29/18 21:00 89 100 10/29/18 20:01 87 16 147/92 97 10/29/18 20:00 99.0 F 87 15 100 10/29/18 19:01 13 147/84 10/29/18 18:46 144/98 10/29/18 18:31 162/94 10/29/18 18:16 99 H 14 168/102 97 10/29/18 18:01 102 H 176/105 100 10/29/18 18:00 101 H 100 10/29/18 17:02 91 H 98 10/29/18 17:01 92 H 160/97 100 10/29/18 17:00 92 H 99 10/29/18 16:46 95 H 166/102 100 10/29/18 16:31 89 153/97 100 10/29/18 16:16 89 147/94 100 10/29/18 16:02 89 100 10/29/18 16:01 89 133/84 100 10/29/18 16:00 89 100 10/29/18 15:32 133/89 10/29/18 15:16 86 142/85 100 10/29/18 15:01 87 131/89 94 10/29/18 15:00 91 H 92 10/29/18 14:46 87 118/60 100 10/29/18 14:45 86 118/60 10/29/18 14:37 87 142/87 100 10/29/18 14:31 87 127/89 100 10/29/18 14:30 99.5 F H 87 127/89 10/29/18 14:16 83 139/91 100 10/29/18 14:15 88 139/91 10/29/18 14:01 88 121/88 100 10/29/18 14:00 98.7 F 90 24 H 133/84 100 10/29/18 13:45 84 125/87 10/29/18 13:30 84 144/94 10/29/18 13:15 85 134/94 10/29/18 13:02 87 94 10/29/18 13:01 99.4 F H 87 162/102 98 10/29/18 13:00 86 162/102 10/29/18 12:46 86 164/99 93 10/29/18 12:45 88 164/99 10/29/18 12:31 79 146/92 98 10/29/18 12:30 79 146/92 10/29/18 12:16 80 156/88 100 10/29/18 12:15 81 156/88 10/29/18 12:07 80 100 10/29/18 12:01 96.6 F L 79 140/92 100 10/29/18 12:00 81 140/92 10/29/18 11:45 80 135/93 10/29/18 11:30 78 148/86 10/29/18 11:16 79 132/87 97 10/29/18 11:15 79 132/87 10/29/18 11:06 78 97 10/29/18 11:01 75 132/87 98 10/29/18 11:00 78 132/87 10/29/18 10:45 76 146/92 10/29/18 10:30 75 145/90 10/29/18 10:15 76 147/88 10/29/18 10:01 74 141/95 100 10/29/18 10:00 96.6 F L 75 141/95 10/29/18 09:37 98.7 F 74 136/90 100 Intake and Output 10/29/18 10/30/18 10/30/18 21:59 05:59 13:59 Intake Total 507 263 0 Output Total 5040 0 0 Balance -4533 263 0 Intake: IV 237 263 Heparin/D5w 25,000 Unit In 237 263 Premix 1 Bag @ 14 UNIT/KG/HR 35 .18 mls/hr IV .[id number] [facility] Rx#: [id number] Oral 270 0 0 Output: Void Amount 0 0 0 Hemodialysis UF 5040 Other: Meal Nourishment/Supplement Nourishment/Supplement Breakfast Percent of Meal Consumed 100% 100% Refused Feeding Ability Independent Independent Nourishment/Supplement name strawberries egg salad sandwich Stool Color Brown Stool Consistency Soft # Voids 0 Weight 271 lb 6 oz Additional comments: Constitutional; Afebrile, cooperative, alert, not in distress. Respiratory system: Air Entry equal on both sides, No crackles or wheezing, no rhonchi. CVS- Rate rhythm regular, S1,S2 heard, no gallop, no rub. Abdomen- Soft nontender abdomen, no organomegaly, no tenderness, no guarding or rigidity, [employer]- AOOx3, moving all extremities, no gross focal deficit noted. Medical - DS: Data Labs on day of discharge: Labs from last 24 hours 10/30/18 10/30/18 10/30/18 03:45 03:45 03:45 WBC 9.9 RBC 2.77 L Hgb 7.8 L Hct 23.5 L MCV 84.7 MCH 28.1 MCHC 33.2 RDW 13.6 Plt Count 307 MPV 8.2 Gran % 61.6 Lymph % (Auto) 24.0 [place] % (Auto) 7.9 Eos % (Auto) 6.1 Baso % (Auto) 0.4 Gran # 6.1 Lymph # (Auto) 2.4 [place] # (Auto) 0.8 Eos # (Auto) 0.6 Baso # (Auto) 0 APTT 86 H Sodium 135 Potassium 3.9 Chloride 96 Carbon Dioxide 27 Anion Gap 12.0 BUN 19 Creatinine 4.4 H GFR Calculation 15 Glucose 170 H Uric Acid 3.4 Calcium 7.9 L Phosphorus 3.7 Magnesium 1.9 Total Bilirubin 0.2 Direct Bilirubin < 0.2 GGT 18 AST 15 ALT < 5 Alkaline Phosphatase 72 Lactate Dehydrogenase 264 H Total Protein 6.6 Albumin 2.8 L Globulin 3.8 H Albumin/Globulin Ratio 0.7 L Triglycerides 211 H Random Vancomycin Vancomycin Dose Vanco Last Dose Time 10/30/18 10/29/18 10/29/18 01:00 17:10 15:06 WBC RBC Hgb Hct MCV MCH MCHC RDW Plt Count MPV Gran % Lymph % (Auto) [place] % (Auto) Eos % (Auto) Baso % (Auto) Gran # Lymph # (Auto) [place] # (Auto) Eos # (Auto) Baso # (Auto) APTT 71 H 63 H Sodium Potassium Chloride Carbon Dioxide Anion Gap BUN Creatinine GFR Calculation Glucose Uric Acid Calcium Phosphorus Magnesium Total Bilirubin Direct Bilirubin GGT AST ALT Alkaline Phosphatase Lactate Dehydrogenase Total Protein Albumin Globulin Albumin/Globulin Ratio Triglycerides Random Vancomycin 8.6 Vancomycin Dose Not Reportable Vanco Last Dose Time Not Reportable 10/29/18 08:55 WBC RBC Hgb Hct MCV MCH MCHC RDW Plt Count MPV Gran % Lymph % (Auto) [place] % (Auto) Eos % (Auto) Baso % (Auto) Gran # Lymph # (Auto) [place] # (Auto) Eos # (Auto) Baso # (Auto) APTT 74 H Sodium Potassium Chloride Carbon Dioxide Anion Gap BUN Creatinine GFR Calculation Glucose Uric Acid Calcium Phosphorus Magnesium Total Bilirubin Direct Bilirubin GGT AST ALT Alkaline Phosphatase Lactate Dehydrogenase Total Protein Albumin Globulin Albumin/Globulin Ratio Triglycerides Random Vancomycin Vancomycin Dose Vanco Last Dose Time Preliminary micro results at discharge 10/28/18 21:02 Blood Culture - Preliminary Blood 10/28/18 20:49 Blood Culture - Preliminary Blood Medical - DS: A/P - Patient/Caregiver Discharge Instructions Activity: increase activity as tolerated Diet: Consistent Carbohydrate, Renal/Consistent Carbs Additional Instructions: Follow up with Dr Centeno at your regular Hemodialysis days, He will treat your infection from the catheter You have a blood clot in the vein of the neck, you will need blood thinners for 3 months, take Eliquis 5mg twice daily for [address] Shipman in 1 -2 weeks. Follow up with PCP in 1 week. Follow up with Dr Dr. Gen Webster in 1 week for pericardial effusion (fluid around your heart) . Please go to the ER if you notice any fever, chest pain, shortness of breath, blood in stools black stools or any other acute concern. - Follow up Plan Follow up with: Eladia Schwartz ARNP [Primary Care Provider] - Disposition: Home, Self-Care Prognosis: Good Rehab Potential: Good I certify that the patient requires SNF services: No Overall status at discharge: patient is back to baseline Medical - DS: Qual - VTE Deep Vein Thrombosis/Pulmonary Embolism Present on Admission: No
== END 2018-10-30 11:20 | disposition home or self-care (01) | DRG 314 ==
LOC: ED 10:56 → ICU 20:28
PROVIDERS: ADMIT Internal Medicine; ATTEND Internal Medicine

== ENCOUNTER 2019-05-11 12:16 | Observation (INO) ==
--- NOTE | 2019-05-11 13:50 | Ultrasound Report ---
CLINICAL INFORMATION: History of right internal jugular vein thrombosis. This is been previously treated. TECHNIQUE: Routine grayscale and color flow Doppler spectral imaging COMPARISON: Previous examination dated 10/28/2018 FINDINGS: There is a right-sided central venous catheter. This has a nodule protruding into the distal right internal jugular vein. There is occlusive thrombus within the mid and distal right internal jugular vein. This extends from the mid internal jugular vein to the junction with the subclavian vein. The right subclavian vein is negative. No right subclavian venous thrombosis. Appearance is consistent with recurrent right internal jugular vein thrombosis. IMPRESSION: 1. Positive examination. Appearance is consistent with recurrent thrombosis in the mid and distal right internal jugular vein 2. There is a right central venous catheter. There is a knuckle of catheter protruding into the distal right internal jugular vein. Interpreted and Authenticated by: Joaquín Mckinney 05/11/19
[2019-05-11 14:29] LABS: Basophils # (Auto) 0 K/mcL (0.0-0.3); Basophils % (Auto) 0.5 % (0.0-2.0); Eosinophils # (Auto) 0.5 K/mcL (0.0-0.7); Eosinophils % (Auto) 5.8 % (0.0-7.0); Granulocytes % (Auto) 68.2 % (38.0-78.0); Hematocrit 26.2 % (41.0-55.0); Hemoglobin 8.8 g/dL (13.5-16.5); Lymphocytes # (Auto) 1.8 K/mcL (1.5-4.8); Lymphocytes % (Auto) 19.6 % (15.5-49.0); Mean Cell Volume 89.6 fL (80.0-100.0); Mean Corpuscular HGB Conc 33.8 g/dL (31.0-36.0); Mean Platelet Volume 7.6 fL (7.4-10.4); Monocytes # (Auto) 0.5 K/mcL (0.1-0.9); Monocytes % (Auto) 5.9 % (1.0-12.0); Platelet Count 225 K/mcL (140-440); RBC 2.92 M/mcL (4.50-5.90); Red Cell Distribution Width 17.1 % (11.5-14.5); WBC 9.2 K/mcL (4.5-11.0)
[2019-05-11 14:59] LABS: ALT/SGPT 9 U/l (0-40); AST/SGOT 11 U/l (0-37); Albumin 3.8 gm/dL (3.2-5.2); Alkaline Phosphatase 88 U/L (39-117); Bilirubin,Total 0.3 mg/dL (0.0-1.0); Blood Urea Nitrogen 66 mg/dl (6-20); Calcium 9.3 mg/dl (8.6-10.4); Carbon Dioxide 25 mmol/L (22-30); Chloride 97 mmol/L (96-108); Globulin 3.7 gm/dL (2.2-3.7); Glomerular Filtration Rate 7; Glucose 220 mg/dL (70-105)
[2019-05-11] MEDS ORDERED: SODIUM POLYSTYRENE SULFONATE 15 GM/60 ML SUSPENSION PO ONE (15:10)
[2019-05-11] MEDS ORDERED: CALCIUM CHLORIDE 1,000 MG/10 ML SYRINGE IV ONE (15:10)
[2019-05-11] MEDS ORDERED: INSULIN REGULAR, HUMAN 1 UNIT/0.01 ML UNIT IV ONE (15:10)
[2019-05-11] MEDS ORDERED: ALBUTEROL SULFATE 5 MG/ML NEB SOLUTION BOTTLE NEB ONE (15:10)
--- NOTE | 2019-05-11 15:11 | Cat Scan Report ---
CLINICAL INFORMATION: Headache TECHNIQUE: Axial noncontrast enhanced images through the brain. Sagittal and coronal reformatted images COMPARISON: None. FINDINGS: No acute intracranial hemorrhage. No subdural hematoma. No subarachnoid hemorrhage. No intra-axial hematoma. No focal intra-axial attenuation abnormalities or localized mass effect. No midline shift. Brain volume is normal. No hydrocephalus. Brainstem and cerebellum are negative. No extra-axial, intracranial abnormality. Basilar cisterns are normal. No calvarial lesions. No fracture. No lytic lesion. Temporal bones are negative. IMPRESSION: Negative noncontrast enhanced brain CT scan Interpreted and Authenticated by: Joaquín Mckinney 05/11/19
[2019-05-11] MEDS ORDERED: DEXTROSE 10 % IN WATER 1,000 ML IV SCH (15:15)
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
--- NOTE | 2019-05-11 16:48 | Internal Med History&Physical ---
Medical - H&P: HPI Patient information: Note initiated : 05/11/19 at 4:40 pm Service Date, if different from initiated Date: [] Patient: Leslie Lawson 49 y/o M admitted on for headaches. Chief Complaint: Right neck pain and headache History of present illness: Mr. Lawson is a 49 year old M with a history of type 2 diabetes, end-stage renal disease, diabetic retinopathy with legal blindness, hypertension on therapy who presented to the emergency department with right sided neck and head pain. The patient's been on hemodialysis since September, dialyzing through a right subclavian tunneled catheter. He has had a fistula placed in the left arm, it is currently maturing. Patient presented to this facility back in October with similar symptoms. At that time he was found to have a right jugular venous thrombosis. He was treated initially with heparin, started on Eliquis. His symptoms went away after for 5 days. He only had minimal symptoms by the time of discharge. In the interim the patient's undergone 3 times weekly dialysis. Apparently his potassiums tend to run on the high side. About 4 days ago he started to have mild right-sided neck pain similar to what it happened in October. This worsened by the day. This morning he woke up nauseated with dry heaves. Because of the worsening pain in his right neck, which is moderate to severe, associated with scalp pain which was very similar t o previous he presented to the emergency department. Evaluation in the emergency department shows right internal jugular thrombus. I see no records, and he tells me he has not had any interim imaging to see if there was any resolution of the initial thrombus. However he had been asymptomatic until about 4 days ago. He has not missed any doses of his Eliquis. He denies any dyspnea, no cough or hemoptysis. This morning he did not have any abdominal pain, was nauseated with dry heaves, no hematemesis. He was saturating well in the emergency department. Further laboratory evaluation also revealed critical hyperkalemia at 7.2. His creatinine was 8.4. He was due for outpatient dialysis today, however came to the emergency department because of the neck symptoms. Initially in the ED, interventional radiology was contacted at [place] who recommended outpatient referral for replacement of the dialysis catheter. After his discussion with Dr. Centeno, his service desk director, the patient will be kept here, anticoagulation will be changed from Eliquis (which is not well studied in the ESRD population) to warfarin. Patient will be hospitalized for acute dialysis given his acute electrolyte abnormalities. Patient has headache associated with right neck pain. No jaw pain. He has a l ittle bit of a sore throat after throwing up this morning, had been okay prior to that. Said no fever, usually feels a little chilled, particularly with weather change. He has poor vision, which is unchanged. Is legally blind. No chest pain/tightness/squeezing. No abdominal pain, no diarrhea. He makes a small amount of urine which is unchanged. No dysuria. No joint pains or swelling. All systems: reviewed and no additional remarkable complaints except as stated Medical - H&P: H Medical history: End stage renal disease Right jugular DVT, diagnosed October 2018 Type II diabetes (Chronic) Diabetic retinopathy, legally blind Morbid obesity (Chronic) Multiple lipomas (Chronic) Hypertension, essential (Chronic) History of appendicitis Joint pain (Chronic) Daytime sleepiness (Chronic) Muscle pain (Chronic) Arthritis (Chronic) Thoracic back pain (Acute) Surgical history: H/O foot surgery (Chronic) Hx of appendectomy (Chronic) S/P excision of lipoma (Chronic) H/O right forearm AV dialysis fistula, Apr 2019 Pertinent family history: Father-Diabetes Social history: The patient does not smoke nor drink alcohol. Medical - H&P: Meds Home Medications Medication Instructions Recorded Confirmed Type Bumetanide 2 mg PO DAILY 10/28/18 05/11/19 History Irbesartan [Avapro] 300 mg PO DAILY 10/28/18 05/11/19 History Rosuvastatin [Crestor] 10 mg PO HS 10/28/18 05/11/19 History amLODIPine BESYLATE [Amlodipine 5 mg PO DAILY 10/28/18 05/11/19 History Besylate] Apixaban [Eliquis] 5 mg PO BID tab 10/30/18 05/11/19 Rx Amitriptyline [Elavil] 75 mg PO HS 05/11/19 05/11/19 History Bisoprolol Fumarate 10 mg PO DAILY 05/11/19 05/11/19 History Blood-Glucose Meter [Blood Glucose 1 each MC BID 05/11/19 05/11/19 History Monitoring] Calcium Acetate [Phoslo] 1,334 mg PO TIDCC 05/11/19 05/11/19 History Famotidine [Pepcid] 20 mg PO Q3-4DAYS 05/11/19 05/11/19 History Ondansetron [Zofran ODT] 4 mg SL BID 05/11/19 05/11/19 History buPROPion HCL [Bupropion Xl] 150 mg PO DAILY 05/11/19 05/11/19 History Allergies Allergy/AdvReac Type Severity Reaction Status Date / Time morphine Allergy Severe Anaphylaxis Verified 01/31/19 07:51 Penicillins Allergy Severe Anaphylaxis Verified 01/31/19 07:51 doxycycline AdvReac Mild Vomiting Verified 01/31/19 07:51 Medical - H&P: Exam - Constitutional Vitals: Temp Pulse Resp BP Pulse Ox 98.3 F 88 17 188/103 100 05/11/19 12:20 05/11/19 16:16 05/11/19 15:55 05/11/19 16:16 05/11/19 16:16 Exam: GENERAL: Alert, oriented, in no acute distress. Cooperative, appears stated a ge. HEENT: Atraumatic. PERRL at 4 mm and sluggish, conjunctiva clear, no scleral icterus. Hearing grossly intact. Oropharynx with moist mucous membranes, no lip or gum lesions, no pharyngeal erythema or exudate. Tongue midline, palate rises symmetrically. NECK: Tender along palpation of the right jugular region. No overlying erythema, minimal swelling. No edema proximally. Mild tenderness with range of motion associated with stretch over the jugular region. No meningeal signs. No thyromegaly appreciated. RESPIRATORY: Breath sounds clear bilaterally without wheezes or rhonchi. Respi ratory effort is unlabored. CARDIOVASCULAR: Regular rate and rhythm, no murmur gallop or rub. No peripheral edema. Carotid pulses 2+ on left, difficult to examine right due to tenderness. GI: Abdomen soft, nontender, no guarding or rebound. Bowel sounds are present. No hepatosplenomegaly. MUSCULOSKELETAL: No joint erythema or swelling, normal range of motion in all extremities. Thrill and bruit over left distal forearm fistula. Surgical wound from fistula healing well. SKIN: Intact, warm, dry. Surgical wound healing well at left antecubital fossa. Skin turgor normal. NEUROLOGIC: Cranial nerves II through XII show decreased visual acuity, otherwise grossly intact. Muscle mass normal. Strength 5/5 in the upper and lower extremities. Sensation intact to light touch bilaterally. PSYCHIATRIC: Alert, oriented x3, normal mood and affect, normal insight. Medical - H&P: Reslt - Labs CBC & Chem 7: 05/11/19 13:56 05/11/19 13:56 Labs: Short CBC 05/11/19 Range/Units 13:56 WBC 9.2 (4.5-11.0) K/mcL Hgb 8.8 L (13.5-16.5) g/dL Hct 26.2 L (41.0-55.0) % Plt Count 225 (140-440) K/mcL BMP 05/11/19 13:56 Sodium 134 Potassium 7.2 H* Chloride 97 Carbon Dioxide 25 BUN 66 H Creatinine 8.4 H* Glucose 220 H Calcium 9.3 Liver Function 05/11/19 Range/Units 13:56 Total Bilirubin 0.3 (0.0-1.0) mg/dL AST 11 (0-37) U/l ALT 9 (0-40) U/l Alkaline Phosphatase 88 (39-117) U/L Albumin 3.8 (3.2-5.2) gm/dL - EKG Data -: EKG Reviewed by Myself (Sinus rhythm, normal intervals. Mildly prominent T waves in V2, V3.) - Imaging and Cardiology CT scan - head Status: image reviewed by me Additional comments: Date of Service: 05/11/19 IMPRESSION: Negative noncontrast enhanced brain CT scan Venous US Status: image reviewed by me Additional comments: Date of Service: 05/11/19 IMPRESSION: 1. Positive examination. Appearance is consistent with recurrent thrombosis in the mid and distal right internal jugular vein 2. There is a right central venous catheter. There is a knuckle of catheter protruding into the distal right internal jugular vein. Medical - H&P: A/P (1) Hyperkalemia Current visit: Yes Status: Acute (2) End stage renal disease on dialysis due to type 2 diabetes mellitus Current visit: Yes Status: Acute (3) Jugular vein thrombosis, right Current visit: Yes Status: Acute (4) Hypertension, essential Current visit: No Status: Chronic - Narrative A/P Narrative: 49-year-old male with history of type 2 diabetes, complications of end-stage renal disease on dialysis, diabetic retinopathy who presents with right neck pain. Hyperkalemia. End-stage renal disease due to diabetes. Patient with potassium of 7.2. Does not have concerning EKG changes. No evidence of volume overload, but requires urgent hemodialysis due to electrolyte abnormalities. He missed his usual appointment for dialysis this afternoon as he was in the emergency department. He will require hospitalization for hemodialysis. Plan: 1. Hospitalized in observation, telemetry 2. Urgent hemodialysis, Dr. Centeno consulted Right internal jugular thrombosis. Previously diagnosed with right IJ thrombosis and 10/2018. Has been on Eliquis. Has been asymptomatic until about 4 days ago. This either represents a failure of Eliquis in this situation and recurrent thrombosis versus old thrombus that is now symptomatic for some reason. There are not much data on the use of Eliquis and VTE in the setting of end-stage renal disease on dialysis. This could represent a failure. He does not have evidence of significant venous obstruction, would not appear to require any site directed lytic therapy at this time. Plan: Transition from Eliquis to warfarin, monitor INR to assure therapeutic anticoagulation. Hypertension. Blood pressure running elevated. He has not taken his blood pressure medicines today. Plan: Resume home antihypertensive regimen. Added on as needed medications if blood pressure remains elevated. Type 2 diabetes. Patient's diabetes been uncontrolled with complications as noted above. Now notes that he is generally controlled with diet, glucose is 78-200 and he does not use insulin regularly at home. Plan: Renal/controlled carb diet. Sliding scale insulin, Accu-Cheks. CODE STATUS: Full code Prophylaxis: On Eliquis, transitioning to warfarin.
[2019-05-11] MEDS ORDERED: DEXTROSE 31 GM ORAL.SUSP PO PRN (17:14)
[2019-05-11] MEDS ORDERED: ONDANSETRON 4 MG/2 ML VIAL IV PRN (17:14)
[2019-05-11] MEDS ORDERED: ACETAMINOPHEN 325 MG TABLET PO PRN (17:14)
[2019-05-11] MEDS ORDERED: DEXTROSE 50% 50 ML VIAL IV PRN (17:14)
[2019-05-11] MEDS ORDERED: CARVEDILOL 12.5 MG TABLET PO SCH (17:30)
[2019-05-11 18:04] LABS: INR 1.1 (0.9-1.1); Prothrombin Time 13.9 sec (11.9-14.5)
[2019-05-11] MEDS: INSULIN LISPRO 1 UNIT/0.01 ML UNIT SQ SCH ×2 (18:16→20:27)
[2019-05-11] MEDS: 0.9 % SODIUM CHLORIDE 10 ML SYRINGE IV SCH (20:27)
[2019-05-11] MEDS ORDERED: ATORVASTATIN 20 MG TABLET PO SCH (21:00)
[2019-05-11] MEDS ORDERED: AMITRIPTYLINE 25 MG TABLET PO SCH (21:00)
[2019-05-11] MEDS ORDERED: ROSUVASTATIN 10 MG TABLET PO SCH (21:00)
[2019-05-11] MEDS ORDERED: WARFARIN 5 MG TABLET PO SCH (21:00)
[2019-05-11] MEDS: MUPIROCIN OINT 2% 22GM NARES SCH (23:18)
[2019-05-11] MEDS: APIXABAN 5 MG TABLET PO SCH (23:38)
[2019-05-12] MEDS: 0.9 % SODIUM CHLORIDE 10 ML SYRINGE IV SCH ×2 (05:18→10:12)
[2019-05-12 05:33] LABS: Basophils # (Auto) 0 K/mcL (0.0-0.3); Basophils % (Auto) 0.6 % (0.0-2.0); Eosinophils # (Auto) 0.5 K/mcL (0.0-0.7); Eosinophils % (Auto) 6.2 % (0.0-7.0); Granulocytes % (Auto) 61.5 % (38.0-78.0); Hematocrit 26.1 % (41.0-55.0); Hemoglobin 8.9 g/dL (13.5-16.5); Lymphocytes # (Auto) 1.9 K/mcL (1.5-4.8); Lymphocytes % (Auto) 25.4 % (15.5-49.0); Mean Corpuscular HGB Conc 34.2 g/dL (31.0-36.0); Mean Platelet Volume 7.5 fL (7.4-10.4); Monocytes # (Auto) 0.5 K/mcL (0.1-0.9); Monocytes % (Auto) 6.3 % (1.0-12.0); Platelet Count 219 K/mcL (140-440); Red Cell Distribution Width 16.8 % (11.5-14.5); WBC 7.5 K/mcL (4.5-11.0)
[2019-05-12 06:11] LABS: ALT/SGPT 12 U/l (0-40); AST/SGOT 14 U/l (0-37); Albumin 3.6 gm/dL (3.2-5.2); Alkaline Phosphatase 86 U/L (39-117); Bilirubin,Direct < 0.2 mg/dL (0.0-0.3); Bilirubin,Total 0.2 mg/dL (0.0-1.0); Blood Urea Nitrogen 33 mg/dl (6-20); Calcium 8.8 mg/dl (8.6-10.4); Carbon Dioxide 25 mmol/L (22-30); Chloride 95 mmol/L (96-108); Globulin 3.6 gm/dL (2.2-3.7); Glomerular Filtration Rate 11; Glucose 222 mg/dL (70-105); Lactate Dehydrogenase 275 U/L (94-250); Phosphorous 5.3 mg/dL (2.7-4.5); Triglycerides 313 mg/dl (<150); Uric Acid 3.2 mg/dL (2.5-8.0)
[2019-05-12] MEDS: CALCIUM ACETATE 667 MG CAPSULE PO SCH ×2 (08:56→11:49)
[2019-05-12] MEDS: APIXABAN 5 MG TABLET PO SCH (08:58)
[2019-05-12] MEDS: INSULIN LISPRO 1 UNIT/0.01 ML UNIT SQ SCH ×2 (08:59→11:43)
[2019-05-12] MEDS: MUPIROCIN OINT 2% 22GM NARES SCH (08:59)
[2019-05-12] MEDS ORDERED: LOSARTAN 50 MG TABLET PO SCH (09:00)
[2019-05-12] MEDS ORDERED: MAGNESIUM OXIDE 400 MG TABLET PO SCH (09:00)
[2019-05-12] MEDS ORDERED: BISOPROLOL 5 MG TABLET PO SCH (09:00)
[2019-05-12] MEDS ORDERED: buPROPion 150 MG TAB.XL.24H PO SCH (09:00)
[2019-05-12] MEDS ORDERED: amLODIPine 5 MG TABLET PO SCH (09:00)
[2019-05-12] MEDS ORDERED: BUMETANIDE 1 MG TABLET PO SCH (09:00)
[2019-05-12] MEDS ORDERED: IRBESARTAN 150 MG PO SCH (09:00)
[2019-05-12] MEDS ORDERED: VANCOMYCIN 2,000 MG in 0.9 % SODIUM CHLORIDE 500 ML IV ONE (09:16)
--- NOTE | 2019-05-12 09:19 | Nephrology Progress Note ---
Subjective Patient information: Note initiated : 05/12/19 at 9:17 am Service Date, if different from initiated Date: [] Patient: Leslie Lawson 49 y/o M admitted on 05/11/19 for headaches. Chief Complaint: [] Pain is better. Objective - Vital Signs Vital signs: Vital Signs Temp Pulse Pulse Resp BP BP Pulse Ox 05/12/19 08:08 98.8 F 81 16 163/93 98 05/12/19 03:58 99.2 F H 84 20 125/70 93 05/11/19 23:53 98.8 F 81 20 145/86 95 05/11/19 23:46 82 120/80 99 05/11/19 23:45 98.3 F 82 120/80 05/11/19 23:31 87 111/82 100 05/11/19 23:30 86 111/82 05/11/19 23:16 83 135/83 97 05/11/19 23:15 83 135/83 05/11/19 23:02 86 134/91 100 05/11/19 23:01 83 99 05/11/19 23:00 86 134/91 05/11/19 22:47 85 134/91 100 05/11/19 22:45 84 134/91 05/11/19 22:31 85 148/95 100 05/11/19 22:30 85 148/95 05/11/19 22:17 84 128/74 99 05/11/19 22:15 86 128/74 05/11/19 22:01 84 145/77 99 05/11/19 22:00 83 145/77 05/11/19 21:46 85 143/84 99 05/11/19 21:45 82 143/84 05/11/19 21:32 85 124/70 97 05/11/19 21:30 82 124/70 05/11/19 21:18 85 169/98 97 05/11/19 21:17 89 184/113 98 05/11/19 21:15 84 169/95 05/11/19 21:01 92 H 20 152/96 98 05/11/19 21:00 82 152/96 05/11/19 20:50 112 H 18 159/93 89 L 05/11/19 20:45 85 159/93 05/11/19 20:30 88 207/112 05/11/19 20:15 87 205/109 05/11/19 20:00 97.8 F 91 H 192/118 05/11/19 19:45 94 H 190/110 05/11/19 19:30 98.2 F 91 H 192/128 05/11/19 18:02 89 175/110 99 05/11/19 17:52 88 190/100 96 05/11/19 17:41 88 160/107 95 05/11/19 17:36 98.1 F 89 18 175/110 96 05/11/19 17:20 98.3 F 88 17 189/94 98 05/11/19 17:07 90 198/94 97 05/11/19 17:03 88 98 05/11/19 17:01 88 97 05/11/19 16:48 89 189/94 98 05/11/19 16:37 90 185/105 98 05/11/19 16:16 88 188/103 100 05/11/19 16:15 88 100 05/11/19 15:55 83 17 216/113 100 05/11/19 15:16 80 173/103 97 05/11/19 15:02 81 175/102 98 05/11/19 15:00 83 16 99 05/11/19 14:31 79 9 L 183/108 97 05/11/19 14:16 77 11 L 180/109 96 05/11/19 14:09 78 22 171/99 99 05/11/19 13:01 77 16 164/92 100 05/11/19 12:47 77 16 179/103 99 05/11/19 12:20 98.3 F 77 18 153/94 100 Intake and Output 05/11/19 05/12/19 05/12/19 21:59 05:59 13:59 Intake Total 754 480 Output Total 4086 Balance 754 -3606 Intake: IV 634 Dextrose 10%-Water IV Solution 634 1,000 ml @ 50 mls/hr IV .Q20H [facility] Rx#:[id number] Oral 120 480 Output: Hemodialysis UF 4086 Other: Meal Dinner Percent of Meal Consumed 100% Feeding Ability Independent # Bowel Movements 2 Weight 268 lb 3.2 oz 257 lb 9 oz Intake & Output: Intake & Output 10/30/19 10/31/19 10/31/19 21:59 05:59 13:59 Intake Total 754 480 Output Total 4086 Balance 754 -3606 Weight 268 lb 3.2 oz 257 lb 9 oz Intake: IV 634 Dextrose 10%-Water IV Solution 634 1,000 ml @ 50 mls/hr IV .Q20H [facility] Rx#:[id number] Oral 120 480 Output: Hemodialysis UF 4086 Other: Meal Dinner Percent of Meal Consumed 100% Feeding Ability Independent # Bowel Movements 2 - General Appearance General appearance: well-developed EENT: ATNC Neck: no JVD Respiratory: no kyphosis Cardiology: no murmurs Gastrointestinal: normoactive bowel sounds Neurologic: no focal deficit - Lab 05/12/19 03:50 05/12/19 03:50 Most recent lab results Calcium 8.8 mg/dl (8.6-10.4) 05/12/19 03:50 Phosphorus 5.3 mg/dL (2.7-4.5) H 05/12/19 03:50 Magnesium 2.0 mg/dL (1.6-2.5) 05/12/19 03:50 Assessment and Plan (1) End stage renal disease Status: Acute Comment: Had dialysis yesterday. Potassium is normal. DVT. Covert to coumadin. Positive blood culture. Will give vanco and follow cultures as outpatient.
[2019-05-12] MEDS ORDERED: WARFARIN 5 MG TABLET PO ONE (10:00)
--- NOTE | 2019-05-12 12:58 | Discharge Summary ---
Medical - DS: Prov Patient information: Note initiated : 05/12/19 at 12:56 pm Service Date, if different from initiated Date: [] Patient: Leslie Lawson 49 y/o M admitted on 05/11/19 for headaches. Chief Complaint: [] Date of admission: 05/11/19 17:16 Discharge date: 05/12/19 Primary care physician: Eladia Schwartz Admitting clinician: Aminta Weathers Consults: 05/11/19 Consult to Physician [CONS] Stat Comment: Consulting Provider: Aminta Weathers Reason For Exam: Physician to Consult Discharging clinician: Aminta Weathers Medical - DS: Meds - Discharge Medications Active and Home Medications: Home Medications Bumetanide 2 mg PO DAILY 10/28/18 [History Confirmed 05/11/19 Last Taken 05/10/19 08:00] Irbesartan [Avapro] 300 mg PO DAILY 10/28/18 [History Confirmed 05/11/19 Last Taken 05/10/19 08:00] Rosuvastatin [Crestor] 10 mg PO HS 10/28/18 [History Confirmed 05/11/19 Last Taken 05/10/19 21:00] amLODIPine BESYLATE [Amlodipine Besylate] 5 mg PO DAILY 10/28/18 [History Confirmed 05/11/19 Last Taken 05/10/19 08:00] Apixaban [Eliquis] 5 mg PO BID tab 10/30/18 [Rx Confirmed 05/11/19 Last Taken 05/10/19 17:00] Amitriptyline [Elavil] 75 mg PO HS 05/11/19 [History Confirmed 05/11/19 Last Taken 05/10/19 21:00] Bisoprolol Fumarate 10 mg PO DAILY 05/11/19 [History Confirmed 05/11/19 Last Taken 05/10/19 08:00] Blood-Glucose Meter [Blood Glucose Monitoring] 1 each MC BID 05/11/19 [History Confirmed 05/11/19 Last Taken 05/10/19 17:00] Calcium Acetate [Phoslo] 1,334 mg PO TIDCC 05/11/19 [History Confirmed 05/11/19 Last Taken 05/10/19 17:00] Famotidine [Pepcid] 20 mg PO Q3-4DAYS 05/11/19 [History Confirmed 05/11/19 Last Taken 05/09/19 21:00] Ondansetron [Zofran ODT] 4 mg SL BID 05/11/19 [History Confirmed 05/11/19 Last Taken 05/10/19 21:00] buPROPion HCL [Bupropion Xl] 150 mg PO DAILY 05/11/19 [History Confirmed 05/11/19 Last Taken 05/10/19 08:00] Medical - DS: Hosp Hospital Course: Presentation 05/11: Mr. Lawson is a 49 year old M with a history of type 2 diabetes, end-stage renal disease, diabetic retinopathy with legal blindness, hypertension on t herapy who presented to the emergency department with right sided neck and head pain. The patient's been on hemodialysis since September, dialyzing through a right subclavian tunneled catheter. He has had a fistula placed in the left arm, it is currently maturing. Patient presented to this facility back in October with similar symptoms. At that time he was found to have a right jugular venous thrombosis. He was treated initially with heparin, started on Eliquis. His symptoms went away after for 5 days. He only had minimal symptoms by the time of discharge. In the interim the patient's undergone 3 times weekly dialysis. Apparently his potassiums tend to run on the high side. About 4 days ago he started to have mild right-sided neck pain similar to what it happened in October. This worsened by the day. This morning he woke up nauseated with dry heaves. Because of the worsening pain in his right neck, which is moderate to severe, associated with scalp pain which was very similar to previous he presented to the emergency department. Evaluation in the emergency department shows right internal jugular thrombus. I see no records, and he tells me he has not had any interim imaging to see if there was any resolution of the initial thrombus. However he had been asymptomatic until about 4 days ago. He has not missed any doses of his Eliquis. He denies any dyspnea, no cough or hemoptysis. This morning he did not have any abdominal pain, was nauseated with dry heaves, no hematemesis. He was saturating well in the emergency department. Further laboratory evaluation also revealed critical hyperkalemia at 7.2. His creatinine was 8.4. He was due for outpatient dialysis today, however came to the emergency department because of the neck symptoms. Initially in the ED, interventional radiology was contacted at [facility] who recommended outpatient referral for replacement of the dialysis catheter. After his discussion with Dr. Centeno, his district supervisor, the patient will be kept here, anticoagulation will be changed from Eliquis (which is not well studied in the ESRD population) to warfarin. Patient will be hospitalized for acute dialysis given his acute electrolyte abnormalities. 05/12: Patient doing well. Had hemodialysis last evening. Hyperkalemia is corrected. Neck/head pain is improved. Transitioning to warfarin for long-term anticoagulation, changing from apixaban. He will continue on apixaban until warfarin is therapeutic. It is suspected the IJ thrombus is persistent from the initial diagnosis in October,. Blood cultures drawn by Dr. Centeno admission, 1 bottle growing gram-positive cocci identified as staph epidermidis. Has received vancomycin during this hospitalization, Dr. Centeno will follow-up final ID and sensitivities and direct any further IV antibiotics through dialysis. Patient without any tenderness or discomfort at his tunneled dialysis catheter. Discharge diagnosis: Hyperkalemia Secondary discharge diagnosis: End-stage renal disease secondary to diabetes mellitus Right jugular VTE - Time Spent with Patient Total time spent providing and/or coordinating discharge services: Greater than 30 minutes Medical - DS: Exam - Constitutional Vitals: Vital Signs Temp Pulse Pulse Resp BP BP Pulse Ox 05/12/19 11:51 98.9 F 77 18 156/97 98 05/12/19 08:08 98.8 F 81 16 163/93 98 05/12/19 08:00 16 98 05/12/19 03:58 99.2 F H 84 20 125/70 93 05/11/19 23:53 98.8 F 81 20 145/86 95 05/11/19 23:46 82 120/80 99 05/11/19 23:45 98.3 F 82 120/80 05/11/19 23:31 87 111/82 100 05/11/19 23:30 86 111/82 05/11/19 23:16 83 135/83 97 05/11/19 23:15 83 135/83 05/11/19 23:02 86 134/91 100 05/11/19 23:01 83 99 05/11/19 23:00 86 134/91 05/11/19 22:47 85 134/91 100 05/11/19 22:45 84 134/91 10/30/19 22:31 85 148/95 100 05/11/19 22:30 85 148/95 05/11/19 22:17 84 128/74 99 05/11/19 22:15 86 128/74 05/11/19 22:01 84 145/77 99 05/11/19 22:00 83 145/77 05/11/19 21:46 85 143/84 99 05/11/19 21:45 82 143/84 05/11/19 21:32 85 124/70 97 05/11/19 21:30 82 124/70 05/11/19 21:18 85 169/98 97 05/11/19 21:17 89 184/113 98 05/11/19 21:15 84 169/95 05/11/19 21:01 92 H 20 152/96 98 05/11/19 21:00 82 152/96 05/11/19 20:50 112 H 18 159/93 89 L 05/11/19 20:45 85 159/93 05/11/19 20:30 88 207/112 05/11/19 20:15 87 205/109 05/11/19 20:00 97.8 F 91 H 192/118 05/11/19 19:45 94 H 190/110 05/11/19 19:30 98.2 F 91 H 192/128 05/11/19 18:02 89 175/110 99 05/11/19 17:52 88 190/100 96 05/11/19 17:41 88 160/107 95 05/11/19 17:36 98.1 F 89 18 175/110 96 05/11/19 17:20 98.3 F 88 17 189/94 98 05/11/19 17:07 90 198/94 97 05/11/19 17:03 88 98 05/11/19 17:01 88 97 05/11/19 16:48 89 189/94 98 05/11/19 16:37 90 185/105 98 05/11/19 16:16 88 188/103 100 05/11/19 16:15 88 100 05/11/19 15:55 83 17 216/113 100 05/11/19 15:16 80 173/103 97 05/11/19 15:02 81 175/102 98 05/11/19 15:00 83 16 99 05/11/19 14:31 79 9 L 183/108 97 05/11/19 14:16 77 11 L 180/109 96 05/11/19 14:09 78 22 171/99 99 05/11/19 13:01 77 16 164/92 100 Intake and Output 05/11/19 05/12/19 05/12/19 21:59 05:59 13:59 Intake Total 754 480 740 Output Total 4086 Balance 754 -3606 740 Intake: IV 634 500 Dextrose 10%-Water IV Solution 634 1,000 ml @ 50 mls/hr IV .Q20H BISI Rx#:[id number] Vancomycin 2,000 mg In Sodium 500 Chloride 0.9% 500 ml @ 250 mls/ hr IV ONCE ONE Rx#:[id number] Oral 120 480 240 Output: Hemodialysis UF 4086 Other: Meal Dinner Breakfast Percent of Meal Consumed 100% 100% Feeding Ability Independent Independent # Bowel Movements 2 Weight 268 lb 3.2 oz 257 lb 9 oz 257 lb 9 oz Patient Weight 05/13/19 05:59 Weight 257 lb 9 oz Additional comments: General: Sitting in bed no acute distress. Chest: Clear to auscultation with good respiratory effort. Right subclavian tu nneled dialysis catheter without erythema or tenderness. Cardiovascular: Regular, no murmur appreciated. Abdomen: Nontender Neuro: Alert, oriented. Decreased visual acuity remains. Strength 5/5. Medical - DS: Data Procedures and tests throughout hospitalization: Hemodialysis on 05/11/2019 Labs on day of discharge: Labs from last 24 hours 05/12/19 05/12/19 05/11/19 03:50 03:50 13:56 WBC 7.5 RBC 2.90 L Hgb 8.9 L Hct 26.1 L MCV 90.0 MCH 30.8 MCHC 34.2 RDW 16.8 H Plt Count 219 MPV 7.5 Gran % 61.5 Lymph % (Auto) 25.4 [place] % (Auto) 6.3 Eos % (Auto) 6.2 Baso % (Auto) 0.6 Gran # 4.6 Lymph # (Auto) 1.9 [place] # (Auto) 0.5 Eos # (Auto) 0.5 Baso # (Auto) 0 PT 13.9 INR 1.1 Sodium 136 Potassium 4.3 Chloride 95 L Carbon Dioxide 25 Anion Gap 16.0 BUN 33 H Creatinine 5.5 H* GFR Calculation 11 Glucose 222 H Uric Acid 3.2 Calcium 8.8 Phosphorus 5.3 H Magnesium 2.0 Total Bilirubin 0.2 Direct Bilirubin < 0.2 GGT 19 AST 14 ALT 12 Alkaline Phosphatase 86 Lactate Dehydrogenase 275 H Total Protein 7.2 Albumin 3.6 Globulin 3.6 Albumin/Globulin Ratio 1.0 Triglycerides 313 H 05/11/19 05/11/19 13:56 13:56 WBC 9.2 RBC 2.92 L Hgb 8.8 L Hct 26.2 L MCV 89.6 MCH 30.3 MCHC 33.8 RDW 17.1 H Plt Count 225 MPV 7.6 Gran % 68.2 Lymph % (Auto) 19.6 [place] % (Auto) 5.9 Eos % (Auto) 5.8 Baso % (Auto) 0.5 Gran # 6.3 Lymph # (Auto) 1.8 [place] # (Auto) 0.5 Eos # (Auto) 0.5 Baso # (Auto) 0 PT INR Sodium 134 Potassium 7.2 H* Chloride 97 Carbon Dioxide 25 Anion Gap 12.0 BUN 66 H Creatinine 8.4 H* GFR Calculation 7 Glucose 220 H Uric Acid Calcium 9.3 Phosphorus Magnesium Total Bilirubin 0.3 Direct Bilirubin GGT AST 11 ALT 9 Alkaline Phosphatase 88 Lactate Dehydrogenase Total Protein 7.5 Albumin 3.8 Globulin 3.7 Albumin/Globulin Ratio 1.0 Triglycerides Preliminary micro results at discharge 05/11/19 19:00 Blood Culture - Preliminary Blood Gram positive cocci - Additional Comments CT scan - head Date of Service: 05/11/19 IMPRESSION: Negative noncontrast enhanced brain CT scan Venous US of neck Date of Service: 05/11/19 IMPRESSION: 1. Positive examination. Appearance is consistent with recurrent thrombosis in the mid and distal right internal jugular vein 2. There is a right central venous catheter. There is a knuckle of catheter protruding into the distal right internal jugular vein. Medical - DS: A/P - Patient/Caregiver Discharge Instructions Activity: increase activity as tolerated Diet: Consistent Carbohydrate - Problem Maintenance (1) Hyperkalemia Status: Resolved (2) End stage renal disease on dialysis due to type 2 diabetes mellitus Status: Chronic (3) Jugular vein thrombosis, right Status: Chronic (4) Hypertension, essential Status: Chronic - Follow up Plan Follow up with: Eladia Schwartz ARNP [Primary Care Provider] - 05/13/19 12:30 pm (Please arrive 15 minutes early) Jude Centeno MD [Physician] - (Continue with your current dialysis schedule) Disposition: Home, Self-Care Care Plan Goals: This discharge packet is provided to you to help keep you informed about your care. We want to ensure you get everything you need when you go home. You will also be receiving a call from us in a few days to follow up with you and see how you are doing since your discharge. This gives us a chance to listen to any concerns you maybe experiencing since you were discharged or any additional needs you may have, as well as providing us feedback on your care experience. We strive to always provide excellent care and thank you for your feedback and for choosing [facility]. Prognosis: Good Rehab Potential: Good Overall status at discharge: patient is back to baseline Medical - DS: Qual - VTE Deep Vein Thrombosis/Pulmonary Embolism Present on Admission: Yes
== END 2019-05-12 13:16 | disposition home or self-care (01) ==
LOC: ICU 12:16 → ED 12:16 → ICU 17:20
PROVIDERS: ADMIT Internal Medicine; ATTEND Internal Medicine